=== PATIENT | female | born 1955 | race Caucasian/White ===

== ENCOUNTER → 2020-12-06 14:48 | Outpatient (CLI) | payer BC, SELFPAY ==
[2020-12-06 15:39] LABS: Iron 97 ug/dL (37-170)
[2020-12-06 15:50] LABS: Free T3, Triiodothyronine Free 3.25 pg/mL (2.77-5.27); Percent Iron Saturation 35 % (15-50); Total Iron Binding Capacity 280 ug/dL (265-497)
[2020-12-06 16:04] LABS: Thyroid Stimulating Hormone 2.69 uIU/mL (0.47-4.68)
[2020-12-06 16:06] LABS: Ferritin 87 ng/mL (11-264)
== END ==
PROVIDERS: Referring Provider Family Medicine; Visit Provider Family Medicine
DX: E61.1 Iron deficiency (principal); E03.8 Other specified hypothyroidism
CPT/HCPCS: 36415; 82728; 83540; 83550; 84439; 84443; 84481